=== PATIENT | female | born 1965 | race Caucasian/White ===

== ENCOUNTER → 2020-01-04 08:54 | Outpatient (CLI) | payer BC, SELFPAY ==
--- NOTE | ~2020-01-04 | CT_ITS ---
EXAMINATION: CT sinus wo con DATE: 01/04/2020 09:28 INDICATION: Chronic sinusitis. Deviated septum. Sinus surgery in September 2019. TECHNIQUE: Computed tomography (CT) of the paranasal sinuses was performed without contrast. Iterativ e reconstruction technique was employed. Exam dose: 257.89 mGy-cm total exam DLP. COMPARISON: 09/05/2019 CT sinuses FINDINGS: Leftward deviation of nasal septum. The nasal turbinates are prominent in size bilaterally. There is bilateral uncinate process resection and there are bilateral ethmoidectomies since 9. There is prominent increased mucoperiosteal thickening of the left maxillary sinus since 09/05/2019. There is diminished minimal residual mucoperiosteal thickening of the lower right maxillary sinus. Right larger than left nasal antral window. Absent right frontal sinus and very small left frontal sinus. Very small polyp or mucous retention cy st of the lower anterior wall of the right sphenoid sinus. Minimal focal mucoperiosteal thickening of the left sphenoid sinus posteroinferiorly. The sphenoid sinuses are otherwise clear. The middle and inner ear apparatus appear unremarkable. The left mastoid air cells are normally devel oped and aerated. There is extensive opacification of right mastoid air cells compared to 09/05/2019. IMPRESSION: Interval surgical resection of uncinate processes and bilateral ethmoidectomies since Leftward deviation of nasal septum. Increased soft tissue thickening of the left maxillary sinus and minimal slightly diminished right ma xillary sinus mucoperiosteal thickening since 09/05/2019 Minimal soft tissue density of the sphenoid sinuses Increased opacification of right mastoid air cells since 09/05/2019 Reviewed, dictated and finalized at [facility]. Reviewed, dictated and finalized at location [facility]. IMPRESSION: Interval surgical resection of uncinate processes and bilateral et hmoidectomies since 09/05/2019 Leftward deviation of nasal septum. Increased soft tissue thickening of the left maxillary sinus and minimal slight ly diminished right maxillary sinus mucoperiosteal thickening since 09/05/2019 Minimal soft tissue density of the sphenoid sinuses Increased opacification of right mastoid air cells since 09/05/2019
== END ==
PROVIDERS: PCP Family Medicine; Visit Provider Otolaryngology
DX: J32.9 Chronic sinusitis, unspecified (principal); J34.2 Deviated nasal septum
CPT/HCPCS: 70486

== ENCOUNTER → 2020-01-04 08:56 | Outpatient (CLI) | payer BC, SELFPAY ==
--- NOTE | ~2020-01-04 | CT_ITS ---
EXAMINATION: CT chest wo con EXAM DATE: 01/04/2020 09:28 INDICATION: Solitary pulmonary nodule. TECHNIQUE: Spiral CT of the chest without contrast. Axial, coronal and sagittal images were reviewe d. Coronal maximum intensity pixel images of chest reviewed. The dose-length product (DLP) for this examination was 83.20 mGy-cm. The exposure was tailored according to patient size (auto mA exposure control), and iterative reconstruction (ASIR) was used as additional dose reduction technique. Ther e is no prior study for comparison. FINDINGS: There is mild bronchiectasis. Small amount of scattered postinfectious residua, with inter vicky improvement compared to prior study. Mild emphysema. Bilateral breast implants. There are no ple ural or pericardial effusions. Tracheobronchial tree is patent. There is no mediastinal, hilar or axillary lymphadenopathy. There is no pneumothorax. Heart normal in size. There is mild urena ry arterial calcification, arterial sclerosis. Upper abdomen is unremarkable. There is thoracic sp ondylosis without osteoblastic or osteolytic lesions identified. 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 IMPRESSION: 1. Scattered postinfectious residua. 2. Mild emphysema and bronchiectasis. Reviewed, dictated and finalized at location [facility].
== END ==
PROVIDERS: PCP Family Medicine; Visit Provider Nurse Practitioner
DX: R91.1 Solitary pulmonary nodule (principal)
CPT/HCPCS: 71250

== ENCOUNTER → 2021-02-10 16:44 | Outpatient (CLI) | payer BC, SELFPAY ==
--- NOTE | ~2021-02-10 | XR_ITS ---
XR hip RT 2V w AP pelvis 02/10/2021 17:04 Indication: Right hip pain Procedure: 3 views right hip Comparison: No prior studies for comparison. Findings: No fracture, subluxation or dislocation. Pelvic rings are intact. Hips are symmetric. No si gnificant joint space narrowing. No erosive changes. No soft tissue abnormality. Impression: 1: No significant bone or joint abnormality. Reviewed, dictated and finalized at location [facility]. Impression: 1: No significant bone or joint abnormality.
== END ==
PROVIDERS: PCP Family Medicine; Visit Provider Physician Assistant
DX: M25.551 Pain in right hip (principal)
CPT/HCPCS: 73502

== ENCOUNTER → 2021-11-08 02:28 | Outpatient (CLI) | payer OTHER, SELFPAY ==
[2021-11-08 20:05] LABS: Influenza A QL RT-PCR Negative (Negative); Influenza B QL RT-PCR Negative (Negative); SARS-CoV-2 RNA PCR Positive
== END ==
PROVIDERS: PCP Family Medicine; Visit Provider Family Medicine
DX: R68.89 Other general symptoms and signs (principal); U07.1 COVID-19
CPT/HCPCS: 87502; 87804; C9803; U0003; U0005

== ENCOUNTER → 2022-02-09 09:21 | Outpatient (CLI) | payer OTHER, SELFPAY ==
--- NOTE | ~2022-02-09 | CT_ITS ---
EXAMINATION: CT diagnostic chest wo con DATE: 02/09/2022 09:38 INDICATION: new calcified nodular opacity L mid lung TECHNIQUE: Computed tomography (CT) of the chest was performed without intravenous contrast. Addition al 3D reconstructions utilizing coronal maximum intensity projection (MIP) were performed. Automated exposure control and iterative reconstruction technique were employed. The dose-length product was 94 .48 mGy-cm. COMPARISON: 01/04/2020 FINDINGS: Mild emphysema. 4 x 2 mm lenticular likely intrafissural lymph node along the left major fissure. Nessa gs are otherwise clear with no suspicious pulmonary nodules, pneumonia, pulmonary edema or pleural ef fusion. Bilateral breast implants with prominent peripheral capsular calcification. Heart size is nor mal. Atherosclerotic coronary artery calcific location. Aortic valve calcification. No pericardial ef fusion. Thoracic aorta is normal in caliber. No pathologically enlarged thoracic lymphadenopathy. Mil d thoracic spondylosis. IMPRESSION: 1. Mild emphysema. Reviewed, dictated and finalized at location [facility]. IMPRESSION: 1. Mild emphysema.
== END ==
PROVIDERS: PCP Family Medicine; Visit Provider Family Medicine
DX: R91.8 Other nonspecific abnormal finding of lung field (principal); I70.0 Atherosclerosis of aorta; I25.10 Atherosclerotic heart disease of native coronary artery without angina pectoris; J43.9 Emphysema, unspecified
CPT/HCPCS: 71250

== ENCOUNTER → 2023-02-15 12:33 | Outpatient (CLI) | payer OTHER, SELFPAY ==
--- NOTE | ~2023-02-15 | XR_ITS ---
EXAMINATION: XR shoulder LT min 2V DATE: 02/15/2023 13:14 INDICATION: Left shoulder pain TECHNIQUE: AP internally and externally rotated, AP oblique externally rotated and axillary views of the left shoulder were obtained. COMPARISON: None FINDINGS: Normal alignment. Old posterior left seventh rib fracture. No acute fracture. Glenohumeral joint is n ormal. Acromioclavicular joint is normal. Visualized portion of the lungs are clear. Peripherally agata cified left breast implant. IMPRESSION: Old healed posterior left seventh rib fracture. No osseous abnormality at the left shoulder. Reviewed, dictated and finalized at location A. IMPRESSION: Old healed posterior left seventh rib fracture. No osseous abnormality at the l eft shoulder.
== END ==
PROVIDERS: PCP Family Medicine; Visit Provider Family Medicine
DX: M25.512 Pain in left shoulder (principal); Z87.81 Personal history of (healed) traumatic fracture
CPT/HCPCS: 73030

== ENCOUNTER → 2023-06-01 07:49 | Outpatient (CLI) | payer OTHER, SELFPAY ==
--- NOTE | ~2023-06-01 | MR_ITS ---
MRI of the right hip Clinical history: Pain Technique: Coronal T1-weighted, T2-weighted, and proton-density fat-sat images, and axial T1-weighted and proton-density fat-sat images were acquired through the pelvis. Coronal T2-weighted images and c oronal, axial, and sagittal proton-density fat-sat images were acquired through the right hip. Findings: There is no fracture, avascular necrosis, or transient osteoporosis of either hip. 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 No other significant bone marrow signal abnor mality identified in the proximal femora or pelvic bones. Bilateral hip joint spaces are preserved. N o joint effusion. No right acetabular labral tear identified. Visualized musculature about the pelvis and right hip is unremarkable. No muscle atrophy or edema mohit ntified. Visualized tendons are intact. No soft tissue mass or fluid collection. No evidence for burs itis. IMPRESSION: No etiology for right hip pain identified. 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 Reviewed, dictated and finalized at location .
== END ==
PROVIDERS: PCP Family Medicine; Visit Provider Family Medicine
DX: M25.551 Pain in right hip (principal); R93.6 Abnormal findings on diagnostic imaging of limbs
CPT/HCPCS: 73721

== ENCOUNTER 2024-02-21 13:03 | Outpatient (CLI) | payer OTHER, SELFPAY ==
--- NOTE | ~2024-02-21 | XR_ITS ---
Right foot Technique: AP, oblique, and lateral views were obtained. Clinical History: Injury Findings: No acute fracture or dislocation is seen. Osseous alignment is anatomic. Joint spaces are p reserved without erosive or degenerative change. Soft tissues are unremarkable. Impression: Unremarkable right foot radiographs. Reviewed, dictated and finalized at location . Impression: Unremarkable right foot radiographs.
== END 2024-02-21 13:04 ==
PROVIDERS: PCP Family Medicine; Visit Provider Nurse Practitioner Family
DX: S99.921A Unspecified injury of right foot, initial encounter (principal); X58.XXXA Exposure to other specified factors, initial encounter
CPT/HCPCS: 73630

== ENCOUNTER 2024-09-26 01:18 | Day surgery (SDC) | payer OTHER, SELFPAY ==
[2024-09-05 14:39] VITALS: BMI 26.6
[2024-09-26 11:59] VITALS: BP 144/74; PULSE 77; RESP 18; TEMP 36.7; O2SAT 97
[2024-09-26] MEDS: LACTATED RINGERS 1,000 ML 150 ML IV CONT (12:13)
--- NOTE | 2024-09-26 12:29 | PM.HPGS ---
History of Present Illness History of Present Illness Consent: Risks, benefits, and alternatives have been discussed and questions answered. Patient agrees to proceed with procedure. 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 Left knee pain Left shoulder pain Patellofemoral syndrome of left knee Right hip pain Strain of hip and thigh Trigger finger, left middle finger (~2017) Trigger finger, right middle finger (~2015) Surgical History Surgical History History of History of hand surgery x2 History of sinus surgery Family History Family History Father Diabetes mellitus Hypertension Family history of lung cancer, Onset Age: 62 Sibling Diabetes mellitus Mother Cerebrovascular accident Family history of chronic obstructive pulmonary disease Family history of malignant neoplasm of kidney Social History Social History Smoking packs per day: 1 Smoking cigarettes per day: 20.0 Years smoked: 15 Smoking pack-years: 15.00 Smoking status: Former smoker Tobacco type: cigarettes Smoking end date: 06/28/94 Alcohol intake: current Alcohol use details: socially Substance use: never Substance use type: does not use Current Housing: Decline to Answer Concerned About Future Housing: Decline to Answer Difficulty Paying Gas/Electric Bills: Decline to Answer Difficulty Paying for Meds: Decline to Answer Currently Unemployed: Decline to Answer Education: Decline to Answer Difficulty w/ Childcare or Family Care: Decline to Answer Living arrangements: with family Additional living arrangements comments: with Gender identity (if verbalized by the patient): Female Spiritual care concerns: No Meds Home Medications and Allergies Home Medications Medication Instructions Recorded Confirmed Type aspirin 81 mg tablet,delayed 81 mg PO DAILY 09/05/19 09/26/24 History release (Adult Low Dose Aspirin) levothyroxine 50 mcg tablet See Rx Instructions .Route 06/06/24 09/26/24 Rx .COMPLEX #90 tabs montelukast 10 mg tablet See Rx Instructions .Route 09/18/24 09/26/24 Rx .COMPLEX #90 tabs Allergies Allergy/AdvReac Type Severity Reaction Status Date / Time meloxicam Allergy Intermediate eye Verified 09/26/24 11:48 swelling atorvastatin AdvReac Intermediate arthralgias Verified 09/26/24 11:48 pitavastatin [From Livalo] AdvReac Intermediate elevated Verified 09/26/24 11:48 liver function Vital Signs Vital Signs - 24 hr 09/26/24 11:59 Temperature 98.1 F Pulse Rate 77 Respiratory Rate 18 Blood Pressure 144/74 H Pulse Oximetry 97 Oxygen Delivery Room Air Exam Const: General: comfortable and no acute distress HENMT: Face/Nose/Sinus: Normal nares present Eyes: General: appearance normal, both eyes and all related structures Neck: Neck: no JVD Resp: Auscultation: clear to auscultation bilaterally Cardio: Rate: regular rate Rhythm: regular rhythm GI: Inspection: non-distended GI Palp: Yes Soft to palpation Skin: General skin exam: normal color Neuro: General: gait normal Speech: normal speech Extrem: General: normal to inspection Psych: Mental Status: mental status grossly normal Assessment and Plan Assessment and plan (1) Colon cancer screening: Code(s): Z12.11 - Encounter for screening for malignant neoplasm of colon Status: Acute Assessment and Plan: colonoscopy
--- NOTE | 2024-09-26 12:30 | P.PNAN_ITS ---
Anes - Initial Pre Proc Eval Procedure: Operation Date: 09/26/24 13:00 Proposed Procedures p Screening Colonoscopy - Sha Kothari MD Date/Time: 09/26/24 12:30 Surgeon: Sha Kothari MD Pre Op Diagnosis: Neoplasm screening Patient Data Age: 59 Gender: F Height: 1.63 m Weight: 73.9 kg Last Vital Signs Temp 36.7 C 09/26/24 11:59 Pulse 77 09/26/24 11:59 Resp 18 09/26/24 11:59 BP 144/74 H 09/26/24 11:59 Pulse Ox 97 09/26/24 11:59 O2 Del Method Room Air 09/26/24 11:59 Allergies Allergy/AdvReac Type Severity Reaction Status Date / Time meloxicam Allergy Intermediate eye Verified 09/26/24 11:48 swelling atorvastatin AdvReac Intermediate arthralgias Verified 09/26/24 11:48 pitavastatin [From Livalo] AdvReac Intermediate elevated Verified 09/26/24 11:48 liver function Home Medications Medication Instructions Recorded Confirmed Type aspirin 81 mg tablet,delayed 81 mg PO DAILY 09/05/19 09/26/24 History release (Adult Low Dose Aspirin) levothyroxine 50 mcg tablet See Rx Instructions .Route 06/06/24 09/26/24 Rx .COMPLEX #90 tabs montelukast 10 mg tablet See Rx Instructions .Route 09/18/24 09/26/24 Rx .COMPLEX #90 tabs Patient hx anesthesia problems: none Family hx anesthesia problems: none Results Review: All pre-operative results and documents have been reviewed as part of the pre- operative evaluation. 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 Left knee pain Left shoulder pain Patellofemoral syndrome of left knee Right hip pain Strain of hip and thigh Trigger finger, left middle finger (~2018) Trigger finger, right middle finger (~2015) Surgical History Surgical History History of History of hand surgery x2 History of sinus surgery Family History Family History Father Diabetes mellitus Hypertension Family history of lung cancer, Onset Age: 62 Sibling Diabetes mellitus Mother Cerebrovascular accident Family history of chronic obstructive pulmonary disease Family history of malignant neoplasm of kidney Social History Social History Smoking packs per day: 1 Smoking cigarettes per day: 20.0 Years smoked: 15 Smoking pack-years: 15.00 Smoking status: Former smoker Tobacco type: cigarettes Smoking end date: 06/28/94 Alcohol intake: current Alcohol use details: socially Substance use: never Substance use type: does not use Current Housing: Decline to Answer Concerned About Future Housing: Decline to Answer Difficulty Paying Gas/Electric Bills: Decline to Answer Difficulty Paying for Meds: Decline to Answer Currently Unemployed: Decline to Answer Education: Decline to Answer Difficulty w/ Childcare or Family Care: Decline to Answer Living arrangements: with family Additional living arrangements comments: with Gender identity (if verbalized by the patient): Female Spiritual care concerns: No Anes - Eval Final PreProcedure Day of Procedure 09/26/24 12:30 Patient weight: overweight Heart: regular rate and rhythm Lungs: decreased breath sounds Airway: Mallampati scale Neurological: alert and oriented Last oral intake: >/= 8 hours ASA classification: III Emergent: no Anesthetic plan: proceed Anesthesia type and monitoring: general GIVS and standard monitoring Results Review: All pre-operative results and documents have been reviewed as part of the pre- operative evaluation. Informed Consent: The patient's anesthetic plan and its attendant risks and benefits were discussed with the patient/family/POA. Questions were solicited and answers provided to the satisfaction of the patient/family/POA.
[2024-09-26 12:45] VITALS: BP 125/72; PULSE 72; RESP 30; O2SAT 92
[2024-09-26 12:55] VITALS: BP 130/66; PULSE 72; RESP 15; O2SAT 98
[2024-09-26 13:05] VITALS: BP 139/80; PULSE 72; RESP 13; O2SAT 98
== END 2024-09-26 13:18 | disposition home or self-care (01) ==
PROVIDERS: PCP Family Medicine; Visit Provider Internal Medicine Gastroenterology
PROC: 0DJD8ZZ Inspection of Lower Intestinal Tract, Via Natural or Artificial Opening Endoscopic (ICD-10-PCS; CPT 45378; principal; 2024-09-26 13:00)
DX: Z12.11 Encounter for screening for malignant neoplasm of colon (principal); K63.5 Polyp of colon; K64.8 Other hemorrhoids; E78.00 Pure hypercholesterolemia, unspecified; L57.0 Actinic keratosis; Z79.82 Long term (current) use of aspirin; Z98.890 Other specified postprocedural states; Z87.891 Personal history of nicotine dependence; Z80.51 Family history of malignant neoplasm of kidney; Z80.1 Family history of malignant neoplasm of trachea, bronchus and lung; Z82.49 Family history of ischemic heart disease and other diseases of the circulatory system
CPT/HCPCS: 45385; 88305; J2704; J7120